=== PATIENT | female | born 1970 | race Caucasian/White ===

== ENCOUNTER 2024-10-16 14:01 | Emergency (ER) | payer OTHER ==
[2024-10-16] MEDS ORDERED: Magnesium 2 GM/50 ML BAG (IN WATER) ONE (16:11)
[2024-10-16] MEDS ORDERED: Dexamethasone 10 MG/ML VIAL ONE (16:11)
[2024-10-16] MEDS ORDERED: Ipratropium/Albuterol 3 ML NEB ONE (16:27)
[2024-10-16 16:40] LABS: #Basophils 0.05 10x3/uL (0.0-0.2); #Eosinophils 0.12 10x3/uL (0.0-0.5); #Monocytes 0.27 10x3/uL (0.0-1.1); #Neutrophils 2.74 10x3/uL (1.5-8.4); %Basophils 0.8 % (0.0-2.0); %Eosinophils 1.9 % (0.0-6.0); %Lymphocytes 47.4 % (18.0-47.0); %Monocytes 4.4 % (0.0-10.0); %Neutrophils 44.4 % (40.0-75.0); Hematocrit 37.5 % (34.9-44.5); Hemoglobin 12.8 g/dL (12.0-15.5); Mean Corpuscular HGB CONC 34.1 g/dL (32.0-36.0); Mean Platelet Volume 11.3 fL (7.4-10.4); RBC Distribution Width 13.4 % (11.5-14.5); Red Blood Cell (RBC) Count 4.41 10x6/uL (3.90-5.03); White Blood Cell (WBC) Count 6.18 10x3/uL (3.5-10.5)
[2024-10-16 16:42] LABS: Platelet Count 256 10x3/uL (150-450)
[2024-10-16 16:45] LABS: ALT (SGPT) 22 U/L (Less than 34); AST (SGOT) 24 U/L (11-34); Albumin 3.5 g/dL (3.1-4.5); Alkaline Phosphatase 90 U/L (40-110); Anion Gap 12 mmol/L (10-20); BUN (Urea Nitrogen) 15 mg/dL (9.8-20.1); Bilirubin, Total 0.4 mg/dL (0.3-1.2); Calc. Creatinine Clearance 0 mL/min (70-130); Calcium 9.4 mg/dL (7.8-10.44); Carbon Dioxide 24 mmol/L (22-29); Chloride 104 mmol/L (98-107); Estimated GFR 106; Globulin 4.1 g/dL (2.4-3.5); Glucose 342 mg/dL (70-105); Potassium 4.3 mmol/L (3.5-5.1); Protein, Total 7.6 g/dL (6.0-8.3); Sodium 136 mmol/L (136-145)
== END 2024-10-16 18:37 | disposition home or self-care (01) ==
LOC: CSHERS 14:01
DX: J20.9 Acute bronchitis, unspecified (principal); I10 Essential (primary) hypertension; E11.9 Type 2 diabetes mellitus without complications; G47.00 Insomnia, unspecified
CPT/HCPCS: 71045; 80053; 83880; 85025; 93005 ×2; 94640; 96374; 96375; 99284; 99285; J1100; J3475; J7620